=== PATIENT | male | born 1970 | race Hispanic/Latino ===

== ENCOUNTER 2017-05-09 15:27 | Emergency (ER) | payer OTHER ==
[~2017-05-09] VITALS: Ht 162.6 cm; Wt 86.2 kg
[~2017-05-09 15:27] MED LIST: CLINDAMYCIN HC150 MG PO; LEVEMIR100 UNIT/1 SC; LEVOFLOXACIN500 MG PO; LISINOPRIL10 MG PO; METFORMIN HCL500 MG PO; METFORMIN PO; MUPIROCIN22 GM TOP; TYLENOL # 31 EA; TYLENOL # 31 EA PO
== END 2017-05-09 17:04 | disposition home or self-care (01) ==
LOC: ER 15:27
DX: M54.41 Lumbago with sciatica, right side (principal)
CPT/HCPCS: 99282

== ENCOUNTER 2017-06-14 19:21 | Emergency (ER) | payer OTHER ==
[~2017-06-14] VITALS: Ht 162.6 cm; Wt 86.2 kg
--- OUTSIDE RECORDS SUMMARY | 2017-06-14 19:23 | XMS REPORT | Continuity of Care Document ---
Author Author [facility] Organization [facility] Address [address] [place] [address] Phone Unavailable Care Team Providers Care Scheduling Administrator Name Role Phone GEOVANNA TINEO MD PCP Insurance Providers Guarantor VickLety Address [address] [place] [address] Email [email or web address] [facility] Policy Number [id number] Subscriber's Name Lety Vick Relationship 18 Self / Same As Patient Effective Date 14 Advance Directives Directive Response Recorded Date/Time Does the patient have an advance directive? No 11/17/14 6:39pm If yes, is advance directive on file with [facility]? No 11/17/14 6:00pm If not on file with [facility] will patient provide a copy? No 11/17/14 6:00pm Problems Medical Problem Onset Date Status Facial cellulitis 11/17/2014 Acute Medications Current Home Medications Medication Dose Units Route Directions Days Qty Instructions Start Date Metformin Oral Twice A Day Past Home Medications Medication Directions Ordered Status Acetaminophen/Codeine Phosphate (Tylenol # 3*) 1 Ea Tab, 1 Discontinued Acetaminophen/Codeine Phosphate (Tylenol # 3*) 1 Ea Tab, 300 Mg Oral Every 4 Hours Discontinued Clindamycin Hcl 150 Mg Capsule, 300 Mg Oral Every 6 Hours Discontinued Insulin Detemir (Levemir) 100 Unit/1 Ml Vial, 40 Units Subcutaneously Bedtime Discontinued Levofloxacin 500 Mg Tablet, 500 Mg Oral Daily Discontinued Lisinopril 10 Mg Tablet, 10 Mg Oral Daily Discontinued Metformin Hcl 500 Mg Tablet, 500 Mg Oral Twice A Day Discontinued Mupirocin 22 Gm Oint...g., 22 Gm Topically Discontinued Social History Social History Problem Response Recorded Date/Time Onset Date Status Hx Psychiatric Problems No 11/17/2014 6:39pm Not Applicable Not Applicable Hx Eating Disorder No 11/17/2014 6:39pm Not Applicable Not Applicable Hx Substance Use Disorder No 11/17/2014 6:39pm Not Applicable Not Applicable Hx Depression No 11/17/2014 6:39pm Not Applicable Not Applicable Hx Alcohol Use Yes 11/17/2014 6:39pm Not Applicable Not Applicable Hx Substance Use Treatment No 11/17/2014 6:39pm Not Applicable Not Applicable Hx Physical Abuse No 11/17/2014 6:39pm Not Applicable Not Applicable Hospital Discharge Instructions No hospital discharge instruction information available. Plan of Care Discharge Date 05/09/17 5:04pm Disposition HOME, SELF-CARE Condition at Discharge Stable Instructions/Education Provided Sciatica Forms Provided Work/School Excuse Prescriptions See Medication Section Referrals GEOVANNA TINEO MD Address: [address] [place] [id number] OSCAR JOEL MD Address: [address] [place] [id number] Functional Status No functional status information available. Allergies, Adverse Reactions, Alerts No known allergies. Immunizations No immunization information available. Vital Signs Acute Vital Signs Vital Response Date/Time Height 5 ft 4 in 05/09/2017 3:51pm Weight 190 lb 05/09/2017 3:51pm Body Mass Index 32.6 kg/m^2 05/09/2017 3:51pm Results No relevant diagnostic test, laboratory data and/or discharge summary information available. Procedures No procedure information available. Encounters Encounter Location Arrival/Admit Date Discharge/Depart Date Attending Provider Departed Emergency Room [facility] 05/09/17 3:27pm 5:04pm OG LUGO MD
== END 2017-06-14 21:08 | disposition home or self-care (01) ==
LOC: ER 19:21
DX: M54.41 Lumbago with sciatica, right side (principal); E11.9 Type 2 diabetes mellitus without complications; I10 Essential (primary) hypertension; Z76.5 Malingerer [conscious simulation]
CPT/HCPCS: 99282

== ENCOUNTER 2017-12-27 06:25 | Emergency (ER) | payer OTHER ==
[~2017-12-27] VITALS: Ht 162.6 cm; Wt 86.2 kg
[2017-12-27] MEDS ORDERED: KETOROLAC TROMETHAMINE 30 MG/ML VIAL IV STA (06:36)
[2017-12-27] MEDS ORDERED: METFORMIN HCL500 MG PO (06:51)
[2017-12-27] MEDS ORDERED: ULTRAM 50MG50 MG PO (06:51)
[2017-12-27] MEDS ORDERED: GABAPENTIN400 MG PO (06:51)
[2017-12-27] MEDS ORDERED: LOSARTAN POTASS50 MG PO (06:51)
[2017-12-27 06:57] LABS: BASOPHILS # (AUTO) 0.1 (0.0-0.1); BASOPHILS % 0.8 % (0.0-1.0); EOSINOPHILS # (AUTO) 0.3 (0.0-0.4); EOSINOPHILS % 3.1 % (0.0-6.0); HEMATOCRIT 45.6 % (38.2-49.6); HEMOGLOBIN 16.2 g/dL (14.0-18.0); LYMPHOCYTES # (AUTO) 2.4 (1.0-3.2); LYMPHOCYTES % 26.4 % (18.0-39.1); MEAN CORPUSCULAR HEMOGLOBIN 30.3 pg (28-32); MEAN CORPUSCULAR HGB CONC 35.5 g/dL (31-35); MEAN CORPUSCULAR VOLUME 85.2 fL (81-99); MONOCYTES # (AUTO) 0.8 (0.2-0.8); MONOCYTES % 8.9 % (4.4-11.3); NEUTROPHILS # (AUTO) 5.6 (2.1-6.9); NEUTROPHILS % 60.4 % (38.7-80.0); PLATELET COUNT 176 x10e3/uL (140-360); RED BLOOD COUNT 5.35 x10e6/uL (4.3-5.7); RED CELL DISTRIBUTION WIDTH 12.6 % (11.7-14.4)
[2017-12-27 07:36] LABS: ALANINE AMINOTRANSFERASE 21 IU/L (0-55); ALBUMIN 3.8 g/dL (3.5-5.0); ALBUMIN/GLOBULIN RATIO 1.2 (0.8-2.0); ALKALINE PHOSPHATASE 67 IU/L (40-150); ANION GAP 15.1 mmol/L (8-16); BLOOD UREA NITROGEN 10 mg/dL (7-26); BUN/CREATININE RATIO 11 (6-25); CALCIUM 8.5 mg/dL (8.4-10.2); CARBON DIOXIDE 23 mmol/L (22-29); CHLORIDE 103 mmol/L (98-107); CREATINE KINASE 194 IU/L (30-200); CREATININE, SERUM 0.92 mg/dL (0.72-1.25); EST GLOMERULAR FILTRATION RATE > 60 ML/MIN (60-); GLUCOSE 260 mg/dL (74-118); POTASSIUM 4.1 mmol/L (3.5-5.1); SODIUM 137 mmol/L (136-145)
--- NOTE | 2017-12-27 07:38 | Diagnostic Imaging Report ---
PROCEDURE: A single AP view of the chest. COMPARISON: None. INDICATIONS: CHEST PAIN FINDINGS: Lines/tubes: None. Lungs: Low lung volumes. There is no evidence of pneumonia or pulmonary edema. Linear subsegmental atelectasis at the lung bases. Pleura: There is no pleural effusion or pneumothorax. Heart and mediastinum: The heart and the mediastinum are unremarkable. Bones: No acute bony abnormality. IMPRESSION: No acute radiographic abnormality. Dictated by: LOUISE SAAVEDRA M.D. on 12/27/2017 at 7:47 Electronically approved by: LOUISE SAAVEDRA M.D. on 12/27/2017 at 7:47
== END 2017-12-27 08:58 | disposition home or self-care (01) ==
LOC: ER 06:33
DX: R07.89 Other chest pain (principal); I49.3 Ventricular premature depolarization; R94.31 Abnormal electrocardiogram [ECG] [EKG]; E11.65 Type 2 diabetes mellitus with hyperglycemia; I10 Essential (primary) hypertension; G89.29 Other chronic pain
CPT/HCPCS: 36415; 71045; 80053; 82550; 82553; 84484; 85025; 85379; 93005; 99284; J1885

== ENCOUNTER 2021-08-19 09:55 | Emergency (ER) | payer OTHER ==
[~2021-08-19] VITALS: Ht 162.6 cm; Wt 86.2 kg
[~2021-08-19 09:55] MED LIST changes: +GABAPENTIN400 MG PO; +LOSARTAN POTASS50 MG PO; +ULTRAM 50MG50 MG PO
== END 2021-08-19 11:47 | disposition home or self-care (01) ==
LOC: ER 10:11
DX: I10 Essential (primary) hypertension (principal); E11.9 Type 2 diabetes mellitus without complications; G89.29 Other chronic pain
CPT/HCPCS: 99282

== ENCOUNTER 2021-08-31 06:04 | Emergency (ER) | payer OTHER ==
[~2021-08-31] VITALS: Ht 162.6 cm; Wt 86.2 kg
[2021-08-31 07:03] LABS: CLARITY,URINE TURBID (CLEAR); COLOR,URINE RED (YELLOW)
[2021-08-31 07:05] LABS: KETONES,URINE 1+ (NEGATIVE); LEUKOCYTE ESTERASE ,URINE LARGE (NEGATIVE); NITRITE,URINE POSITIVE (NEGATIVE); PROTEIN,URINE DIPSTICK >=300 (NEGATIVE); RBC,URINE >50 /HPF (0-5); WBC,URINE (MAN) >50 /HPF (0-5)
[2021-08-31 07:06] LABS: BACTERIA,URINE MODERATE /HPF; EPITHELIAL CELLS,URINE FEW /LPF
[2021-08-31] MEDS ORDERED: CEFDINIR300 MG PO (07:24)
== END 2021-08-31 07:39 | disposition home or self-care (01) ==
LOC: ER 06:12
DX: N39.0 Urinary tract infection, site not specified (principal); R31.9 Hematuria, unspecified; E11.9 Type 2 diabetes mellitus without complications; I10 Essential (primary) hypertension; Z79.84 Long term (current) use of oral hypoglycemic drugs
CPT/HCPCS: 81001; 87086; 87186; 99282

== ENCOUNTER 2021-10-02 12:01 | Emergency (ER) | payer OTHER ==
[~2021-10-02] VITALS: Ht 162.6 cm; Wt 86.2 kg
[~2021-10-02 12:01] MED LIST changes: +CEFDINIR300 MG PO
[2021-10-02 13:41] LABS: CLARITY,URINE SL CLOUDY (CLEAR); COLOR,URINE YELLOW (YELLOW)
[2021-10-02 13:42] LABS: KETONES,URINE NEGATIVE (NEGATIVE); LEUKOCYTE ESTERASE ,URINE MODERATE (NEGATIVE); NITRITE,URINE NEGATIVE (NEGATIVE); PROTEIN,URINE DIPSTICK 1+ (NEGATIVE); URINE UROBILINOGEN 0.2 mg/dL (0.2 - 1)
[2021-10-02 13:59] LABS: BACTERIA,URINE MANY /HPF; EPITHELIAL CELLS,URINE FEW /LPF; RBC,URINE 0-5 /HPF (0-5); WBC,URINE (MAN) >50 /HPF (0-5)
== END 2021-10-02 14:59 | disposition home or self-care (01) ==
LOC: ER 12:14
DX: R30.0 Dysuria (principal); N39.0 Urinary tract infection, site not specified; I10 Essential (primary) hypertension; E11.9 Type 2 diabetes mellitus without complications; G89.29 Other chronic pain
CPT/HCPCS: 81001; 87086; 87186; 99282

== ENCOUNTER 2022-07-20 06:06 | Observation (INO) | payer OTHER ==
[~2022-07-20] VITALS: Ht 162.6 cm; Wt 93.9 kg
[2022-07-20] MEDS ORDERED: SODIUM CHLORIDE 0.9% 1000ML 1,000 ML IV STA (06:28)
[2022-07-20] MEDS ORDERED: ASPIRIN 81 MG CHEW TAB PO STA (06:28)
[2022-07-20 06:55] LABS: BASOPHILS # (AUTO) 0.1 (0.0-0.1); BASOPHILS % 0.7 % (0.0-1.0); EOSINOPHILS # (AUTO) 0.3 (0.0-0.4); EOSINOPHILS % 2.9 % (0.0-6.0); HEMATOCRIT 42.3 % (38.2-49.6); HEMOGLOBIN 14.9 g/dL (14.0-18.0); LYMPHOCYTES % 30.4 % (18.0-39.1); MEAN CORPUSCULAR HGB CONC 35.2 g/dL (31-35); MEAN CORPUSCULAR VOLUME 82.3 fL (81-99); MONOCYTES # (AUTO) 0.8 (0.2-0.8); MONOCYTES % 7.9 % (4.4-11.3); NEUTROPHILS # (AUTO) 5.6 (2.1-6.9); NEUTROPHILS % 57.6 % (38.7-80.0); PLATELET COUNT 179 x10e3/uL (140-360); RED BLOOD COUNT 5.14 x10e6/uL (4.3-5.7); RED CELL DISTRIBUTION WIDTH 12.3 % (11.7-14.4)
[2022-07-20 07:06] LABS: INR 0.89; PARTIAL THROMBOPLASTIN TIME 28.1 seconds (23.8-35.5); PROTHROMBIN TIME 12.5 seconds (11.9-14.5)
[2022-07-20 07:14] LABS: ALANINE AMINOTRANSFERASE 17 IU/L (0-55); ALBUMIN 3.6 g/dL (3.5-5.0); ALBUMIN/GLOBULIN RATIO 1.2 (0.8-2.0); ALKALINE PHOSPHATASE 48 IU/L (40-150); ANION GAP 12.9 mmol/L (8-16); BLOOD UREA NITROGEN 15 mg/dL (7-26); BUN/CREATININE RATIO 18 (6-25); CALCIUM 8.5 mg/dL (8.4-10.2); CARBON DIOXIDE 21 mmol/L (22-29); CHLORIDE 107 mmol/L (98-107); CREATINE KINASE 211 IU/L (30-200); CREATININE, SERUM 0.85 mg/dL (0.72-1.25); GLUCOSE 189 mg/dL (74-118); MAGNESIUM 1.4 MG/DL (1.3-2.1); POTASSIUM 3.9 mmol/L (3.5-5.1); SODIUM 137 mmol/L (136-145)
[2022-07-20 07:22] LABS: ABG HCO3 20 mmol/L (22-26); ABG PCO2 26 mmHg (35-45); ABG PH 7.49 (7.35-7.45); ABG PO2 160 mmHg (80-105); ABG TCO2 20
[2022-07-20 09:03] LABS: CLARITY,URINE CLEAR (CLEAR); COLOR,URINE YELLOW (YELLOW); KETONES,URINE NEGATIVE (NEGATIVE); LEUKOCYTE ESTERASE ,URINE NEGATIVE (NEGATIVE); NITRITE,URINE NEGATIVE (NEGATIVE); PROTEIN,URINE DIPSTICK 2+ (NEGATIVE); URINE UROBILINOGEN 0.2 mg/dL (0.2 - 1)
[2022-07-20 09:12] LABS: BACTERIA,URINE FEW /HPF; EPITHELIAL CELLS,URINE FEW /LPF; RBC,URINE 0-5 /HPF (0-5); WBC,URINE (MAN) 0-5 /HPF (0-5)
[2022-07-20] MEDS ORDERED: ONDANSETRON HCL INJ 2MG/ML 2ML 2 MG/ML VIAL IV PRN ×2 (09:30→11:00)
[2022-07-20] MEDS ORDERED: DEXTROSE 50% SYRINGE 50 ML IV PRN (09:30)
[2022-07-20] MEDS ORDERED: NITROGLYCERIN 0.4 MG SUBL SL PRN (09:30)
[2022-07-20] MEDS ORDERED: LISINOPRIL10 MG PO (09:49)
[2022-07-20] MEDS: SODIUM CHLORIDE 0.9% 1000ML 1,000 ML IV SCH ×2 (09:59→15:55)
[2022-07-20] MEDS: FAMOTIDINE 20 MG/2 ML VIAL IV SCH ×2 (09:59→21:13)
[2022-07-20] MEDS ORDERED: ACETAMINOPHEN 325 MG TAB PO PRN (11:00)
[2022-07-20] MEDS ORDERED: CLONIDINE HCL 0.1 MG TAB PO PRN (11:00)
[2022-07-20] MEDS: INSULIN LISPRO 100 UNIT/1 ML 3ML VIAL SQ SCH ×3 (11:41→21:15)
[2022-07-20 13:18] VITALS: BP 157/87; PULSE 68; RESP 18; TEMP 97.7; O2SAT 100
[2022-07-20 13:20] VITALS: BP_SYST 139; BP_SYST 158; BP_DIAS 69; BP_DIAS 87; PULSE 68; PULSE 77; RESP 18; TEMP 97.7; O2SAT 100; O2SAT 95
[2022-07-20 14:20] VITALS: BP 158/87; PULSE 68; RESP 18; TEMP 97.7; O2SAT 100
[2022-07-20 16:21] LABS: CREATINE KINASE 188 IU/L (30-200)
[2022-07-20 16:51] VITALS: BP 131/72; PULSE 81; RESP 18; TEMP 97.8; O2SAT 100
[2022-07-20 20:52] VITALS: BP 148/69; PULSE 77; RESP 18; TEMP 97.5; O2SAT 100
[2022-07-20] MEDS ORDERED: LISINOPRIL 20 MG TAB PO SCH (21:00)
[2022-07-20] MEDS: LOSARTAN POTASSIUM 25 MG TAB PO SCH (21:14)
[2022-07-20 21:15] VITALS: BP 148/69; PULSE 77; RESP 18; TEMP 97.5; O2SAT 100
[2022-07-21 01:01] VITALS: BP 144/92; PULSE 78; RESP 16; TEMP 97.8; O2SAT 100
[2022-07-21 05:33] VITALS: BP 140/91; PULSE 78; RESP 16; TEMP 98.6; O2SAT 100
[2022-07-21 06:20] LABS: BASOPHILS # (AUTO) 0.1 (0.0-0.1); EOSINOPHILS # (AUTO) 0.2 (0.0-0.4); EOSINOPHILS % 2.8 % (0.0-6.0); HEMATOCRIT 40.3 % (38.2-49.6); HEMOGLOBIN 13.8 g/dL (14.0-18.0); LYMPHOCYTES # (AUTO) 2.6 (1.0-3.2); LYMPHOCYTES % 32.9 % (18.0-39.1); MEAN CORPUSCULAR HEMOGLOBIN 28.7 pg (28-32); MEAN CORPUSCULAR HGB CONC 34.2 g/dL (31-35); MEAN CORPUSCULAR VOLUME 83.8 fL (81-99); MONOCYTES # (AUTO) 0.6 (0.2-0.8); MONOCYTES % 7.5 % (4.4-11.3); NEUTROPHILS # (AUTO) 4.3 (2.1-6.9); NEUTROPHILS % 55.4 % (38.7-80.0); PLATELET COUNT 177 x10e3/uL (140-360); RED BLOOD COUNT 4.81 x10e6/uL (4.3-5.7); RED CELL DISTRIBUTION WIDTH 12.4 % (11.7-14.4)
[2022-07-21 07:39] LABS: ALBUMIN 3.1 g/dL (3.5-5.0); ALBUMIN/GLOBULIN RATIO 1.2 (0.8-2.0); ANION GAP 13.1 mmol/L (8-16); CHOL/HDL RATIO 4.7 (3.9-4.7); CREATININE, SERUM 0.8 mg/dL (0.72-1.25); POTASSIUM 4.1 mmol/L (3.5-5.1)
[2022-07-21] MEDS: INSULIN LISPRO 100 UNIT/1 ML 3ML VIAL SQ SCH ×2 (08:16→12:43)
[2022-07-21] MEDS: FAMOTIDINE 20 MG/2 ML VIAL IV SCH (08:18)
[2022-07-21] MEDS: LOSARTAN POTASSIUM 25 MG TAB PO SCH (08:18)
[2022-07-21 08:23] VITALS: BP 139/82; PULSE 71; RESP 16; TEMP 97.9; O2SAT 100
[2022-07-21 09:00] VITALS: BP 139/82; PULSE 71; RESP 16; TEMP 97.9; O2SAT 100
[2022-07-21] MEDS ORDERED: ASPIRIN 81 MG ENTERIC COATED PO SCH (09:00)
[2022-07-21] MEDS ORDERED: SODIUM CHLORIDE 0.9% 1000ML 1,000 ML ONE ×2 (09:17→09:19)
[2022-07-21] MEDS ORDERED: HEPARIN SOD (PORCINE) 1000 UNIT/ML 30ML ONE (09:17)
[2022-07-21] MEDS ORDERED: HEPARIN SOD/SOD CHLORIDE 2,000 ML ONE (09:17)
[2022-07-21] MEDS ORDERED: LIDOCAINE HCL 2% LOCAL 20 ML VIAL ONE (09:17)
[2022-07-21] MEDS ORDERED: NITROGLYCERIN/D5W 200 MCG/ML 250 ML ONE (09:17)
[2022-07-21] MEDS ORDERED: IOPAMIDOL 370 MG/ML 100 ML INFUS..BTL INJ ONE (09:17)
[2022-07-21] MEDS ORDERED: CLOPIDOGREL BISULFATE 75 MG TAB PO ONE (10:00)
[2022-07-21] MEDS ORDERED: SODIUM CHLORIDE 0.9% 1000ML 1,000 ML IV SCH (10:00)
[2022-07-21] MEDS ORDERED: FENTANYL CITRATE/PF 100MCG/2 ML INJ ONE (10:02)
[2022-07-21] MEDS ORDERED: MIDAZOLAM HCL 2 MG/2 ML VIAL ONE ×2 (10:02→10:52)
[2022-07-21] MEDS ORDERED: ASPIRIN EC81 MG PO (12:21)
[2022-07-21] MEDS ORDERED: ATORVASTATIN CA40 MG PO (12:21)
[2022-07-21] MEDS ORDERED: COZAAR25 MG PO (12:21)
[2022-07-21] MEDS ORDERED: ONDANSETRON HCL 4 MG ORAL DISINTEGRATING TAB PO PRN (12:45)
[2022-07-21 13:10] VITALS: BP 137/70; PULSE 72; RESP 20; TEMP 98.7; O2SAT 100
[2022-07-21] MEDS ORDERED: LOSARTAN POTASSIUM 25 MG TAB PO SCH (17:00)
[2022-07-21] MEDS ORDERED: ATORVASTATIN 40 MG TAB PO SCH (21:00)
[2022-07-21] MEDS ORDERED: FAMOTIDINE 20 MG TAB PO SCH (21:00)
[2022-07-22] MEDS ORDERED: METOPROLOL SUCCINATE 25 MG TAB XL PO SCH (09:00)
[2022-07-22] MEDS ORDERED: CLOPIDOGREL BISULFATE 75 MG TAB PO SCH (09:00)
== END 2022-07-21 15:15 | disposition home or self-care (01) ==
LOC: ER 06:10 → ERHOLD 09:24 → MED/SURG3 12:56
PROVIDERS: ADMIT Internal Medicine; ATTEND Internal Medicine
DX: I16.1 Hypertensive emergency (principal); I25.110 Atherosclerotic heart disease of native coronary artery with unstable angina pectoris; E11.69 Type 2 diabetes mellitus with other specified complication; I49.3 Ventricular premature depolarization; Z20.822 Contact with and (suspected) exposure to COVID-19; I07.1 Rheumatic tricuspid insufficiency; I34.0 Nonrheumatic mitral (valve) insufficiency; G62.9 Polyneuropathy, unspecified; E66.9 Obesity, unspecified; Z79.84 Long term (current) use of oral hypoglycemic drugs; Z79.82 Long term (current) use of aspirin; Z79.899 Other long term (current) drug therapy; Z83.3 Family history of diabetes mellitus
CPT/HCPCS: 0223U; 36415; 36600; 71045; 76937; 80053 ×2; 80061; 81001; 82550 ×2; 82553 ×2; 82805; 82948 ×2; 83036; 83735; 83880; 84484 ×2; 85025 ×2; 85610; 85730; 87086; 93005; 93306; 93458; 99284; C1725; C1760; C1887 ×5; C1894 ×2; G0378 ×2; J2001; J2250; J3010; J7030 ×2; Q9967; 36247; 99152; 99153; J1644